=== PATIENT | male | born 1975 | race Caucasian/White ===

== ENCOUNTER 2016-10-29 11:09 | Day surgery (SDC) | payer OTHER ==
[~2016-10-29] VITALS: Ht 182.9 cm; Wt 88.0 kg
[~2016-10-29 11:09] MED LIST: ADVIL200 MG PO; TYLENOL EXTRA500 MG PO
[2016-10-29 11:59] VITALS: BP 115/84
[2016-10-29] MEDS ORDERED: PERCOCET 5/31 TABLET PO (15:53)
[2016-10-29] MEDS ORDERED: COLACE100 MG PO (15:53)
[2016-10-29 16:53] VITALS: BP 124/90
[2016-10-29 18:00] VITALS: BP 132/85
== END 2016-10-29 18:30 | disposition home or self-care (01) ==
LOC: SDC 11:09
PROC: 0WUF0JZ Supplement Abdominal Wall with Synthetic Substitute, Open Approach (ICD-10-PCS; principal; 2016-10-29)
DX: K40.90 Unilateral inguinal hernia, without obstruction or gangrene, not specified as recurrent (principal); Z80.0 Family history of malignant neoplasm of digestive organs; Z83.3 Family history of diabetes mellitus
CPT/HCPCS: C1781; J0330; J0690; J1100; J1170; J2250; J2405; J3010